=== PATIENT | female | born 1940 | race Caucasian/White ===

== ENCOUNTER → 2016-10-23 | Outpatient (REF) | payer MEDICARE ==
[~2016-10-23] MED LIST: /ADVA50050; /ALEN70TA OR; /CELE20CA OR; /FENT25PA; /FENT25PA TD; /FENT25PA TOP; ACET500C OR; ACET500C PO; ACET65TA OR; ALBU17IN INH; ALBU17IN2 IN; ALBU83IN; ALBU83IN IN; ALBU83IN INH; AMBI10TA; AMBI10TA OR; ASPI325T OR; BUDE0.5S6 INH; BUPR15TA OR; CALC500T49 OR; CEFU500T2 PO; CELE100C OR; COLA100C5 PO; COUM1TAB17 PO; COUM7.5T PO; DIPH25CA PO; DULC10SU2 PR; DUONSOL IN; EAR DROP; EAR DROP AS; ECOT325T5 OR; FLON0.05; FLON0.054; FLUID PILL; FURO40TA2; FURO40TA2 OR; GABA600T3; GABA600T3 OR; HYDR10TA3 OR; HYDR25TA6 OR; IMIT20SP; KLOR1TAB69 PO; LEVA750T7 PO; LIDO5DIS; LISI-538 PO; LISI10TA4 OR; LOPR1TAB6 PO; LYRI75CA; LYRI75CA OR; MELOPOW; METH1TAB40 PO; MILKSUS OR; MONT10TA2 PO; NASONEX; NORT25CA2 PO; OMEP20TA7 OR; OMEP40CA2 PO; OXYC5CAP4 OR; OXYGEN; PERC5TAB12 PO; PERC5TAB8 OR; POTA10CA2 OR; PRAV20TA2 PO; PRIL40CA; PRIL40CA OR; RANI150C; RANI150C OR; RANI150T PO; SERT100T OR; SERT25TA2 OR; SIMV20TA2 OR; SIMV5TAB2 OR; SING10TA31 OR; TORS20TA2 PO; VENTAER; VENTAER IN; VENTAER INH; VICO5TAB; VITA-115 PO; ZANT150T OR; ZOLO100T PO; [UNRECOGNIZED DRUG - OTHER]; [UNRECOGNIZED DRUG - OTHER]; [UNRECOGNIZED DRUG - OTHER] AS; [UNRECOGNIZED DRUG - OTHER] INH; astelin; astelin nasal
[2016-10-23 15:25] LABS: CALCIUM LEVEL 9.2 MG/DL (8.8-10.2); CREATININE FOR GFR 1.51 MG/DL (0.55-1.02); GLOMERULAR FILTRATION RATE 35.8 (>39); MAGNESIUM LEVEL 2.2 MG/DL (1.8-2.4); POTASSIUM SERUM 4.6 MEQ/L (3.5-5.1)
== END ==
LOC: M SFHCLACO 11:55
PROVIDERS: ATTEND Physician Assistant
DX: I10 Essential (primary) hypertension (principal); M62.838 Other muscle spasm; E66.3 Overweight
CPT/HCPCS: 36415; 80048; 83735; G0463

== ENCOUNTER 2017-07-24 15:06 | Emergency (ER) | payer MEDICARE ==
[2017-07-24 18:14] LABS: BASO % 0.2 % (0.0-1.0); EOS # 0.1 10^3/uL (0.0-0.50); EOS % 0.6 % (0.0-3.0); HEMATOCRIT 36.5 % (36.0-47.0); HEMOGLOBIN 12.3 g/dl (12.0-16.0); IMMATURE GRANULOCYTE % 0.2 % (0-3.0); LYMPH # 3.7 10^3/uL (1.5-4.5); LYMPH % 39.7 % (24.0-44.0); MEAN CORPUSCULAR HEMOGLOBIN 31.5 pg (27.0-33.0); MEAN CORPUSCULAR HGB CONC 33.7 g/dl (32.0-36.5); MEAN CORPUSCULAR VOLUME 93.6 fl (80.0-96.0); MONO # 0.7 10^3/uL (0.0-0.8); MONO % 7.4 % (0.0-5.0); NEUTROPHILS # 4.9 10^3/uL (1.8-7.7); NEUTROPHILS % 51.9 % (36.0-66.0); PLATELET COUNT, AUTOMATED 232 10^3/uL (150-450); WHITE BLOOD COUNT 9.4 10^3/uL (4.0-10.0)
[2017-07-24] MEDS: NS 1,000 ML IV (18:26)
[2017-07-24 18:47] LABS: ALBUMIN 4.1 GM/DL (3.2-5.2); ALBUMIN/GLOBULIN RATIO 1.08 (1.00-1.93); ALKALINE PHOSPHATASE 112 U/L (45-117); ALT/SGPT 14 U/L (12-78); ANION GAP 7 MEQ/L (8-16); AST/SGOT 18 U/L (7-37); BILIRUBIN,TOTAL 0.5 MG/DL (0.2-1.0); BLOOD UREA NITROGEN 23 MG/DL (7-18); CALCIUM LEVEL 9.2 MG/DL (8.8-10.2); CARBON DIOXIDE LEVEL 30 MEQ/L (21-32); CHLORIDE LEVEL 104 MEQ/L (98-107); CREATININE FOR GFR 1.41 MG/DL (0.55-1.30); GLOMERULAR FILTRATION RATE 38.6 (>39); GLUCOSE, FASTING 109 MG/DL (70-100); POTASSIUM SERUM 3.7 MEQ/L (3.5-5.1); SODIUM LEVEL 141 MEQ/L (136-145); TOTAL PROTEIN 7.9 GM/DL (6.4-8.2)
[2017-07-24 20:31] LABS: KETONE, URINE AUTO RFX NEGATIVE (NEGATIVE); MUCUS, URINE RFX SMALL (NEGATIVE); RBC, URINE AUTO RFX 19 /HPF (0-3); SPECIFIC GRAVITY UR AUTO RFX 1.014 (1.002-1.035); SQUAM EPITHELIAL CELL UR AURFX 9 /HPF (0-6)
[2017-07-24 20:33] LABS: LEUKOCYTE ESTERASE UR AUTO RFX 3+ (NEGATIVE); NITRITE, URINE AUTO RFX POSITIVE (NEGATIVE); WBC, URINE AUTO RFX 51 /HPF (0-3)
[2017-07-24 20:43] LABS: ALBUMIN 3.7 GM/DL (3.2-5.2); ALBUMIN/GLOBULIN RATIO 0.97 (1.00-1.93); ALKALINE PHOSPHATASE 103 U/L (45-117); ALT/SGPT 14 U/L (12-78); ANION GAP 6 MEQ/L (8-16); AST/SGOT 18 U/L (7-37); BILIRUBIN,TOTAL 0.4 MG/DL (0.2-1.0); BLOOD UREA NITROGEN 22 MG/DL (7-18); CALCIUM LEVEL 8.3 MG/DL (8.8-10.2); CARBON DIOXIDE LEVEL 30 MEQ/L (21-32); CHLORIDE LEVEL 107 MEQ/L (98-107); CREATININE FOR GFR 1.28 MG/DL (0.55-1.30); GLOMERULAR FILTRATION RATE 43.2 (>39); GLUCOSE, FASTING 97 MG/DL (70-100); POTASSIUM SERUM 3.6 MEQ/L (3.5-5.1); SODIUM LEVEL 143 MEQ/L (136-145); TOTAL PROTEIN 7.5 GM/DL (6.4-8.2)
== END 2017-07-24 21:45 | disposition home or self-care (01) ==
LOC: M ED 15:06
DX: R13.10 Dysphagia, unspecified (principal); N39.0 Urinary tract infection, site not specified; K21.9 Gastro-esophageal reflux disease without esophagitis; I10 Essential (primary) hypertension; J30.2 Other seasonal allergic rhinitis; Z88.0 Allergy status to penicillin; Z88.6 Allergy status to analgesic agent; Z88.8 Allergy status to other drugs, medicaments and biological substances; Z88.1 Allergy status to other antibiotic agents; Z91.040 Latex allergy status; Z79.899 Other long term (current) drug therapy
CPT/HCPCS: 80053

== ENCOUNTER → 2017-08-18 | Outpatient (REF) | payer MEDICARE ==
[2017-08-18 15:23] LABS: ALBUMIN 4.2 GM/DL (3.2-5.2); ALBUMIN/GLOBULIN RATIO 0.98 (1.00-1.93); ALKALINE PHOSPHATASE 107 U/L (45-117); ALT/SGPT 14 U/L (12-78); ANION GAP 8 MEQ/L (8-16); AST/SGOT 23 U/L (7-37); BILIRUBIN,TOTAL 0.4 MG/DL (0.2-1.0); BLOOD UREA NITROGEN 31 MG/DL (7-18); CALCIUM LEVEL 9.4 MG/DL (8.8-10.2); CARBON DIOXIDE LEVEL 29 MEQ/L (21-32); CHLORIDE LEVEL 105 MEQ/L (98-107); CHOLESTEROL LEVEL 171 MG/DL (<200); CHOLESTEROL RISK RATIO 4.275 (<5); CREATININE FOR GFR 1.33 MG/DL (0.55-1.30); GLOMERULAR FILTRATION RATE 41.3 (>39); GLUCOSE, FASTING 98 MG/DL (70-100); HDL CHOLESTEROL 40 MG/DL (>40); LDL CHOLESTEROL 74.8 MG/DL (<100); NON-HDL-C 131 MG/DL; POTASSIUM SERUM 3.8 MEQ/L (3.5-5.1); SODIUM LEVEL 142 MEQ/L (136-145); TOTAL PROTEIN 8.5 GM/DL (6.4-8.2); TRIGLYCERIDES LEVEL 281 MG/DL (<150)
[2017-08-18 15:28] LABS: CREATININE, URINE 63.7 MG/DL; MALB URINE SIEMENS 10.7 MG/L; MAU/CREAT RATIO 16.7 MCG/MG (0.0-30.0)
== END ==
LOC: M SFHCLACO 10:28
DX: I10 Essential (primary) hypertension (principal); E78.2 Mixed hyperlipidemia
CPT/HCPCS: 80053

== ENCOUNTER → 2021-03-01 | Outpatient (CLI) | payer MEDICARE ==
[~2021-03-01] MED LIST changes: -/ADVA50050; -/CELE20CA OR; -/FENT25PA; -/FENT25PA TD; -/FENT25PA TOP; +ADVA1AER2; +CELE1CAP4 OR; +CIPR-249 PO; -COUM7.5T PO; +COUM7.5T6 PO; -DIPH25CA PO; +DIPH25CA32 PO; +E-Z-GAS II EFFERVESCENT PACKET (SODIUM BICARB./CITRIC ACID/SIMETHICONE) As Ordered ONE; +E-Z-HD 98% w/w 340GM SUSP BTL As Ordered ONE; +E-Z-PAQUE 96% w/w SUSP 176GM BTL As Ordered ONE; +FENT1DIS14; +FENT1DIS14 TD; +FENT1DIS14 TOP; -LISI-538 PO; +LISI20TA33 PO; +METH-1164 PO; -METH1TAB40 PO; +MONT10TA10 PO; -MONT10TA2 PO; -OMEP40CA2 PO; +OMEP40CA4 PO
--- NOTE | 2021-03-04 18:10 | REP ---
INDICATION: DYSPHAGIA. COMPARISON: None TECHNIQUE: This procedure was performed by Krista Cifuentes [facility], under the direct supervision of Dr. Crouch. Images were reviewed with Dr. Crouch prior to dictation. Liquid barium and gas producing crystals were given in the erect position, as well as liquid barium in the prone oblique position in order to perform a double contrast esophagram examination. FINDINGS: A single view PA chest x-ray is submitted as a bilingual speech therapist film. The superior mediastinal structures are midline. The heart size is within normal limits. The lungs are clear. The oral and pharyngeal stages of deglutition appeared unremarkable. 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 The patient aspirated the barium material on the 3rd swallowing attempt. At this time the procedure was aborted. Recommend evaluation by speech pathology and cookie swallow. 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 The patient aspirated the barium material in the 3rd swallowing attempt. Recommend evaluation by speech pathology and a cookie swallow. 0.1 minutes of fluoroscopy time was utilized for this procedure. Some fluoroscopic images are performed with last image hold technology. These images require no additional radiation. <Electronically signed by Krista Cifuentes > 03/01/21 1727 <Electronically signed by Aneesh Crouch > 03/04/21 [id number]
== END ==
LOC: M RAD 08:08
PROVIDERS: ATTEND Physician Assistant
DX: R13.12 Dysphagia, oropharyngeal phase (principal)